=== PATIENT | female | born 1970 | race Hispanic/Latino ===

== ENCOUNTER 2018-06-20 08:19 | Outpatient (CLI) | payer BC ==
--- NOTE | 2018-06-20 11:17 | MMO ---
BILATERAL MAMMOGRAMS: DATE: 06/20/18 HISTORY: Screening mammography. COMPARISON: 06/30/15 and 12/31/12. FINDINGS: Scattered fibroglandular densities. No dominant mass or suspicious calcifications. The study was evaluated with the assistance of computer-aided detection. IMPRESSION: BIRADS 1: Negative Suggest routine follow-up. POS: [facility]
== END 2018-06-20 08:20 | disposition home or self-care (01) ==
LOC: SCSMAMMO 08:19
PROVIDERS: ATTEND Family Medicine
DX: Z12.31 Encounter for screening mammogram for malignant neoplasm of breast (principal)
CPT/HCPCS: 77067